=== PATIENT | female | born 1990 | race Caucasian/White ===

== ENCOUNTER 2018-11-14 19:20 | Emergency (ER) | payer MEDICAID ==
[2018-11-14 19:29] VITALS: BP 123/85
--- NOTE | 2018-11-14 19:42 | ED Physician Documentation ---
PD HPI UPPER EXT INJURY - Stated complaint Stated Complaint: LEFT HAND LAC - Chief complaint Chief Complaint: Laceration - History obtained from History obtained from: Patient - History of Present Illness Location: Left, Hand Type of injury: Laceration (stab wound type injury while cutting vegetables and the knife slipped, stabbing into thenar area near base of thumb.) Where injury occurred: Home Timing - onset: Today Timing - details: Abrupt onset Worsened by: Moving (thumb movement causes pain at lac, not into thumb nor palm/wrist.), Palpating Associated symptoms: No: Weakness, Numbness Similar symptoms before: Has not had sx before Recently seen: Not recently seen Review of Systems Neurologic: denies: Focal weakness, Numbness, Near syncope PD PAST MEDICAL HISTORY - Past Medical History Past Medical History: No - Allergies Allergies/Adverse Reactions: Allergies Allergy/AdvReac Type Severity Reaction Status Date / Time No Known Drug Allergies Allergy Verified 11/14/18 19:25 - Social History Does the pt smoke?: No Smoking Status: Never smoker PD ED PE NORMAL - Vitals Vital signs reviewed: Yes - General General: Alert and oriented X 3, No acute distress, Well developed/nourished - Derm Derm: Normal color, Warm and dry - Extremities Extremities: Other (left hand with laceration to thenar area near base of thumb ulnar side. Thumb movement strong in all directions. Pain just at lac site, not along tendon area. Normal sensation in thumb and index finger. Good color and cap refill. No FB seen. ) Results - Vitals Vitals: Oxygen O2 Source Room air Procedures - Laceration (location) left hand thenar area Length in cm: 1 Wound type: Linear, Into subcut fat, Clean Neurovascular status: Sensory intact, Motor intact, Vascular intact Tendon involvement: Tendon intact Anesthesia: Lidocaine 1% with epi Wound Preparation: Wound explored, To the base. No: FB identified Skin layer closure: Interrupted, Size #-0 - enter number (4), Sutures - enter # (3) Other: Patient tolerated well, No complications, Neurovascular intact, Dressing applied Complexity: Simple PD MEDICAL DECISION MAKING - ED course Complexity details: considered differential (location of lac would get rubbed and opened often with use, so shared decision was for sutures. ), d/w patient Departure - Departure Disposition: 01 Home, Self Care Clinical Impression: Laceration of left hand Qualifiers: Encounter type: initial encounter Foreign body presence: without foreign body Qualified Code(s): S61.412A - Laceration without foreign body of left hand, initial encounter Condition: Stable Record reviewed to determine appropriate education?: Yes Instructions: ED Laceration Hand Comments: It is okay to wash and shower. Clean off the wound twice a day with soap and water, or peroxide and water. Apply some antibiotic ointment to it to keep it moist. Also to watch for signs of infection such as purulence, redness or increasing pain. Return to your primary care or the ER at the specified time for suture removal. Suture removal 7 to 8 days. Discharge Date/Time: 11/14/18 20:16
== END 2018-11-14 20:16 | disposition home or self-care (01) ==
LOC: ED 19:20
DX: S61.412A Laceration without foreign body of left hand, initial encounter (principal); W26.0XXA Contact with knife, initial encounter; Y93.G1 Activity, food preparation and clean up; Y92.009 Unspecified place in unspecified non-institutional (private) residence as the place of occurrence of the external cause
CPT/HCPCS: 12001; 99282; 99283

== ENCOUNTER 2019-04-04 11:00 | Outpatient (CLI) | payer MEDICAID ==
[2019-04-04 18:17] LABS: THYROID STIMULATING HORMONE 0.6 uIU/mL (0.34-5.60)
[2019-04-04 18:19] LABS: FREE T4 (FREE THYROXINE) 0.75 ng/dL (0.58-1.64)
== END 2019-04-04 11:01 | disposition home or self-care (01) ==
LOC: LAB.S 11:00
PROVIDERS: ATTEND Physician Assistant Medical
DX: Z13.29 Encounter for screening for other suspected endocrine disorder (principal); R53.83 Other fatigue
CPT/HCPCS: 36415; 84439; 84443; 84481

== ENCOUNTER 2020-02-17 06:43 | Outpatient (CLI) | payer MEDICAID | END 2020-02-17 06:44 | disposition critical access hospital (66) | LOC: EMS 06:43 | PROVIDERS: ATTEND Surgery | DX: R10.32 Left lower quadrant pain (principal); R22.2 Localized swelling, mass and lump, trunk | CPT/HCPCS: A0425; A0427; A0999 ==

== ENCOUNTER 2020-02-17 07:17 | Emergency (ER) | payer MEDICAID ==
[2020-02-17] MEDS ORDERED: KETOROLAC 15 MG/ML VIAL IVP STA (07:30)
[2020-02-17] MEDS ORDERED: HYDROmorphone 1 MG/ML CARPUJECT IVP STA (07:30)
[2020-02-17 07:52] LABS: BASOPHILS % (AUTO) 0.3 %; HGB - HEMOGLOBIN 13.5 g/dL (12.0-16.0); LYMPHOCYTES # (AUTO) 0.8 10^3/uL (1.5-3.5); LYMPHOCYTES % (AUTO) 7.3 %; MEAN CORPUSCULAR HEMOGLOBIN 31.4 pg (27.0-31.0); MEAN CORPUSCULAR HGB CONC 34.4 g/dL (32.0-36.0); MEAN CORPUSCULAR VOLUME 91.4 fL (81.0-99.0); MEAN PLATELET VOLUME 10.3 fL (7.9-10.8); MONOCYTES # (AUTO) 0.5 10^3/uL (0.0-1.0); MONOCYTES % (AUTO) 4.6 %; NEUTROPHILS # (AUTO) 9.4 10^3/uL (1.5-6.6); NEUTROPHILS % (AUTO) 87.4 %; PLT - PLATELET COUNT 221 10^3/uL (130-450); RED CELL DISTRIBUTION WIDTH 12.6 % (12.0-15.0); WHITE BLOOD COUNT 10.8 x10^3/uL (4.8-10.8)
--- NOTE | 2020-02-17 09:26 | ED Physician Documentation ---
PD HPI FEMALE - Stated complaint Stated Complaint: GROIN PAIN - Chief complaint Chief Complaint: Abd Pain - History obtained from History obtained from: Patient - History of Present Illness Timing - onset: Last night Timing - details: Abrupt onset, Still present Associated symptoms: Vaginal pain (left inguinal/vulva area with swelling, tender, bruising.). No: Fever Contributing factors: Other (she was on rope swing into a river and rope got caught on her foot, so it rubbed inguinal area when she tried to let go. Had anisha e abrasion and brusing left outer labial area then. Was improving with some old bruise color of skin. NO infection. 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 - Present Medications Home Medications: Ambulatory Orders Medication Instructions Recorded Confirmed Naproxen 500 mg PO BID #20 tablet 02/17/20 Oxycodone HCl/Acetaminophen 1 each PO Q6H PRN #20 tablet 02/17/20 [Percocet 5-325 mg Tablet] - Allergies Allergies/Adverse Reactions: Allergies Allergy/AdvReac Type Severity Reaction Status Date / Time No Known Drug Allergies Allergy Verified 02/17/20 07:35 - Social History Does the pt smoke?: No Smoking Status: Never smoker Does the pt drink ETOH?: Yes Does the pt have substance abuse?: No - Immunizations Immunizations are current?: Yes - POLST Patient has POLST: No PD ED PE NORMAL - Vitals Vital signs reviewed: Yes - General General: Alert and oriented X 3, Well developed/nourished, Other (appears in pain from left inguinal swelling. 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 Some old bruising purple green color in inguinal area. No masses aside from the firm/tight hematoma. Some abrasion of skin outer labia without signs of infection. ) - Derm Derm: Normal color, Warm and dry, No rash - Neuro Neuro: Alert and oriented X 3 Results - Vitals Vitals: Vital Signs - 24 hr 02/17/20 02/17/20 02/17/20 07:28 08:16 09:35 Temperature 36 C L 36.9 C Heart Rate 77 75 76 Respiratory 16 16 18 Rate Blood Pressure 117/82 H 126/70 105/56 L O2 Saturation 97 99 100 Oxygen O2 Source Room air - Labs Labs: Laboratory Tests 02/17/20 07:48 WBC 10.8 RBC 4.30 Hgb 13.5 Hct 39.3 MCV 91.4 MCH 31.4 H MCHC 34.4 RDW 12.6 Plt Count 221 MPV 10.3 Neut # (Auto) 9.4 H Lymph # (Auto) 0.8 L [place] # (Auto) 0.5 Eos # (Auto) 0.0 Baso # (Auto) 0.0 Absolute Nucleated RBC 0.00 Nucleated RBC % 0.0 PD MEDICAL DECISION MAKING - ED course Complexity details: re-evaluated patient (rechecked after 1 1/2 hours and no appearance of it still expanding. She says it feels somewhat better with the ice on it aned less tense of a hematoma. ), d/w systems development consultant (Janneth waste reduction coordinator, that would not surgically appropach it unless still expanding hematoma. So to watch it for 1-2 hours aand ensure not notably expanding. ) ED course: No change in hematoma size after 1 1/2 hours, and patient says it is starting to hurt less with the ice application to it during that time. Departure - Departure Disposition: 01 Home, Self Care Clinical Impression: Vulvar hematoma Condition: Stable Record reviewed to determine appropriate education?: Yes Instructions: ED Hematoma Follow-Up: Naomi Lagunas MD [Provider Admit Priv/Credential] - Prescriptions: Naproxen 500 mg PO BID #20 tablet Oxycodone HCl/Acetaminophen [Percocet 5-325 mg Tablet] 1 each PO Q6H PRN #20 tablet PRN Reason: pain Comments: Ice to the area frequently today and tomorrow for sure. Anti-inflammatory such as naproxen 2-3 times daily. To that add Tylenol or oxycodone as needed for pains. I would anticipate the pressure and pain decreasing in the next 2 to 3 days as the initial pressure decreases. The hematoma itself may take 1 to 2 weeks to absorb. Follow-up with gynecology if not improving in that timeframe. Return to the ER if considerably expanding. Discharge Date/Time: 02/17/20 10:13
[2020-02-17 09:40] VITALS: BP 105/56
== END 2020-02-17 10:13 | disposition home or self-care (01) ==
LOC: EDUNIT# → ED 07:17
DX: S30.23XA Contusion of vagina and vulva, initial encounter (principal); W50.0XXA Accidental hit or strike by another person, initial encounter
CPT/HCPCS: 36415; 85025; 96374; 99283; 99284; J1170

== ENCOUNTER 2020-06-22 08:00 | Outpatient (CLI) | payer MEDICAID | END 2020-06-22 23:59 | disposition home or self-care (01) | LOC: LAB.R 08:00 | PROVIDERS: ATTEND Obstetrics & Gynecology | DX: L08.89 Other specified local infections of the skin and subcutaneous tissue (principal) | CPT/HCPCS: 87070; 87205 ==

== ENCOUNTER 2020-06-26 11:07 | Emergency (ER) | payer MEDICAID ==
--- NOTE | 2020-06-26 11:48 | ED Physician Documentation ---
History of Present Illness - Stated complaint Stated Complaint: BREAST LUMP - Chief complaint Chief Complaint: General - History obtained from History obtained from: Patient - Additonal information Additional information: 30-year-old female presents to the emergency department for further evaluation of right breast pain, swelling and erythema. She reports that on the of this month she noticed a firm lump at about 1:00 just outside the nipple. However over the next few days and especially on the of this month she began to develop increased swelling and erythema. She saw her OB Dr. Lagunas on the and was started on a course of dicloxacillin 500 mg. Despite this antibiotic she has had progressive swelling erythema and tenderness. She is had no fevers. No history of recent breast-feeding. No history of trauma. Denies any previous history of mastitis family history of breast or personal history of breast cancer. No nipple drainage, no red streaking. 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 - Present Medications Home Medications: Ambulatory Orders Medication Instructions Recorded Confirmed Naproxen 500 mg PO BID #20 tablet 02/17/20 Oxycodone HCl/Acetaminophen 1 each PO Q6H PRN #20 tablet 02/17/20 [Percocet 5-325 mg Tablet] oxyCODONE [Roxicodone] 2.5 - 5 mg PO Q4H PRN #12 tablet 06/22/20 Amox/Clav 875/125 [Augmentin] 1 each PO Q12H #20 tablet 06/26/20 oxyCODONE [Roxicodone] 5 mg PO BID PRN #10 tablet 06/26/20 - Allergies Allergies/Adverse Reactions: Allergies Allergy/AdvReac Type Severity Reaction Status Date / Time No Known Drug Allergies Allergy Verified 06/26/20 11:14 - Social History Does the pt smoke?: No Smoking Status: Never smoker Does the pt drink ETOH?: Yes Does the pt have substance abuse?: No - Immunizations Immunizations are current?: Yes - POLST Patient has POLST: No PD ED PE EXPANDED - General General: Alert, No acute distress, Well developed/nourished - Cardiac Cardiac: Regular Rate, Regular Rhythm, Radial strong equal, Cap refill < 2 sec - Respiratory Respiratory: Clear to ausultation shital. No: Distress, Labored - Abdomen Abdomen: Normal Bowel sounds. No: Tender to palpation - Derm Derm: Other (4X5 cm swelling of right breast circumferentail around the nipple with inversion. Tendenress, firmness nut no obvious fluctuance) Results - Vitals Vitals: Vital Signs - 24 hr 06/26/20 06/26/20 11:11 13:35 Temperature 36.7 C Heart Rate 97 88 Respiratory 16 16 Rate Blood Pressure 134/80 H 131/66 H O2 Saturation 100 100 Oxygen O2 Source Room air - Labs Labs: Laboratory Tests 06/26/20 06/26/20 12:04 12:04 WBC 9.5 RBC 4.41 Hgb 13.7 Hct 41.0 MCV 93.0 MCH 31.1 H MCHC 33.4 RDW 12.0 Plt Count 307 MPV 9.9 Neut # (Auto) 6.7 H Lymph # (Auto) 2.0 [place] # (Auto) 0.7 Eos # (Auto) 0.1 Baso # (Auto) 0.0 Absolute Nucleated RBC 0.00 Nucleated RBC % 0.0 Sodium 141 Potassium 4.2 Chloride 104 Carbon Dioxide 25 Anion Gap 12.0 BUN 12 Creatinine 0.5 Estimated GFR (MDRD) 144 Glucose 96 Calcium 9.8 Total Bilirubin 0.4 AST 16 ALT 21 Alkaline Phosphatase 84 Total Protein 8.0 Albumin 4.4 Globulin 3.6 Albumin/Globulin Ratio 1.2 Lipase 21 L - Rads (name of study) Right breast US Radiology: Final report received (Diffuse edema with increased vascularity throughout all quadrants spreading out about 6 cm. Increased right ductal dilation. No abscess formation.) PD MEDICAL DECISION MAKING - ED course Complexity details: reviewed results, re-evaluated patient, considered differential, d/w patient, d/w is consultant (OB Dr. Gonzalez) ED course: 30-year-old female presents emergency department for evaluation of worsening right breast mastitis. She initially developed a firm lump on the of this month and was started on dicloxacillin on the . Despite taking this antibiotic she has had increased erythema and pain. We did do screening labs today that showed no significant leukocytosis. Breast ultrasound does reveal extensive mastitis in the breast but no abscess formation. I did speak with Dr. Craig the OB on-call to discuss further management. As she has failed dicloxacillin he would recommend that we initiate Augmentin 875 twice daily. If pain erythema and redness not markedly improving in the next 48 to 72 hours he recommends return to the ER for consideration of IV antibiotics/admission. First dose of Augmentin will be given here in the emergency department. Patient is also advised to schedule close follow-up with OB for reevaluation at the completion of these antibiotics Departure - Departure Disposition: 01 Home, Self Care Clinical Impression: Mastitis of right breast unrelated to of Condition: Stable Record reviewed to determine appropriate education?: Yes Prescriptions: Amox/Clav 875/125 [Augmentin] 1 each PO Q12H #20 tablet oxyCODONE [Roxicodone] 5 mg PO BID PRN #10 tablet PRN Reason: Pain Comments: Trina the ultrasound confirms that you do have mastitis which is infection within the breast tissue. However, reassuringly, there is no abscess or fluid collection. Lets change her antibiotics to Augmentin. Please take it twice a day as directed. Also please place a warm compress over your breast for 10 minutes 3 times a day. Heat helps kill bacteria and gets good blood flow to the wound. Please stop taking your previous antibiotic the dicloxacillin. With the change in antibiotics I would expect redness, swelling and pain to be markedly improving over the next 48 to 72 hours. If not improving or worsening in any way please return to the emergency department. At that time we may need to consider admission for IV antibiotics. I have prescribed a limited amount of on for your pain. Do not drive if taking this medication it can legally intoxicated you. Please take lactobacillus twice a day [id number]. Augmentin can cause diarrhea.
[2020-06-26 12:08] LABS: BASOPHILS % (AUTO) 0.3 %; EOSINOPHILS # (AUTO) 0.1 10^3/uL (0.0-0.7); EOSINOPHILS % (AUTO) 1.4 %; HGB - HEMOGLOBIN 13.7 g/dL (12.0-16.0); LYMPHOCYTES % (AUTO) 20.9 %; MEAN CORPUSCULAR HEMOGLOBIN 31.1 pg (27.0-31.0); MEAN CORPUSCULAR HGB CONC 33.4 g/dL (32.0-36.0); MEAN PLATELET VOLUME 9.9 fL (7.9-10.8); MONOCYTES # (AUTO) 0.7 10^3/uL (0.0-1.0); MONOCYTES % (AUTO) 7.3 %; NEUTROPHILS # (AUTO) 6.7 10^3/uL (1.5-6.6); NEUTROPHILS % (AUTO) 69.8 %; PLT - PLATELET COUNT 307 10^3/uL (130-450); RED BLOOD COUNT 4.41 10^6/uL (4.20-5.40); WHITE BLOOD COUNT 9.5 x10^3/uL (4.8-10.8)
[2020-06-26] MEDS ORDERED: HYDROmorphone 1 MG/ML CARPUJECT IVP STA (12:10)
[2020-06-26] MEDS ORDERED: SODIUM CHLORIDE 0.9% 1,000 ML IV STA (12:10)
[2020-06-26 12:21] LABS: ALBUMIN 4.4 g/dL (3.2-5.5); ALBUMIN/GLOBULIN RATIO 1.2 (1.0-2.2); BILIRUBIN,TOTAL 0.4 mg/dL (0.2-1.0); CALCIUM 9.8 mg/dL (8.5-10.3); CREATININE 0.5 mg/dL (0.4-1.0)
[2020-06-26] MEDS ORDERED: AMOX/CLAV 875 MG/125 MG TABLET PO STA (14:52)
[2020-06-26 15:04] VITALS: BP 107/78
--- NOTE | 2020-06-29 11:19 | Ultrasound Report ---
LIMITED ULTRASOUND OF RIGHT BREAST: 06/26/2020 CLINICAL: Focal right breast pain and erythema. No prior exams were available for comparison. Ultrasound of the right breast four quadrants and retroareolar regions was performed. There is a 0.4 cm dilated duct in the right breast central to the nipple posterior depth. The right breast has severe edema. This dilated duct displays posterior acoustic enhancement. This correlates as palpated, to the reported pain, and with area of redness. Color flow imaging demonstrates that t here is increased vascularity. IMPRESSION: BENIGN There is no sonographic evidence of malignancy. The 0.4 cm dilated duct in the right breast and edema are consistent with mastitis. A follow-up ultrasound in 1 month after treatment or with worsening is recommended. Findings were discussed discussed with the ordering provider. This exam was interpreted at Station ID: [id number]. Electronically Signed By: Ceferino Wong acr/:06/26/2020 14:41:19 Ultrasound BI-RADS: 2 Benign BI-RADS CATEGORY: (2) - 2 Ultrasound [id number] 1 month follow-up LATERALITY: (B)
== END 2020-06-26 15:11 | disposition home or self-care (01) ==
LOC: ED 11:07
DX: N61.0 Mastitis without abscess (principal)
CPT/HCPCS: 36415; 76642; 80053; 83690; 85025; 99284; A9270

== ENCOUNTER 2020-07-16 14:16 | Outpatient (CLI) | payer MEDICAID ==
--- NOTE | 2020-07-20 11:45 | Ultrasound Report ---
LIMITED ULTRASOUND OF RIGHT BREAST: 07/16/2020 CLINICAL: Palpable right breast lumps. Comparison is made to exams dated: 07/16/2020 mammogram and 06/26/2020 ultrasound - [facility]. Color flow ultrasound of the right breast four quadrants was performed. Welsh scale images of the tanya l-time examination were reviewed. The right breast demonstrates diffuse edema without focal masses or organized fluid collections. Ther e is associated hyperemia. Previously described ductal ectasia is again noted and does not demonstrat e any intraductal filling defects or masses. There is diffuse areas of ill-defined hypoechogenic tiss ue consistent with edema. There is also diffuse skin thickening. Of note, there is no focal abnormali ty underlying the skin markers, but there is associated skin thickening in these areas. No evidence f or disturbed parenchymal echotexture. IMPRESSION: SUSPICIOUS OF MALIGNANCY Diffuse right breast edema and overlying skin thickening without focal mass lesions or disturbed pare nchymal echotexture. No focal fluid collections. Clinically, the patient reports improvement in sympt oms with resolution of nipple thickening and peeling. There has been some equivocal response to cours e of antibiotics. Findings may represent an infectious or inflammatory process with differential diag nosis including granulomatous mastitis or other infectious mastitis with atypical organisms. However, inflammatory breast cancer not completely excluded. A punch biopsy is recommended for further evaluation. Findings and recommendations were discussed wit h Dr. Lagunas as well as Dr. Fischer. Findings were also discussed with the patient at the end of her evaluation. This exam was interpreted at Station ID: [id number]. Electronically Signed By: Sherman Rodas M.D. aty/:07/17/2020 18:38:08 Ultrasound BI-RADS: 4 Suspicious for malignancy BI-RADS CATEGORY: (4) - 4 None [id number] Immediate follow-up LATERALITY: ()
--- NOTE | 2020-07-20 11:45 | Mammography Report ---
BILATERAL DIGITAL DIAGNOSTIC MAMMOGRAM 3D/2D: 07/16/2020 CLINICAL: Palpable RT breast lump x 1 month. yellow discharge oozing out during mammogram. RT nipple is normally inverted. Skin red around breast. PT states mass has decreased in size since taking antib iotics but still persists. No prior exams were available for comparison. The tissue of both breasts is extremely dense, which l owers the sensitivity of mammography. There is a global asymmetry involving the anterior half of the right breast consistent with diffuse t rabecular thickening and edema. The two triangle markers denoting areas of focal skin erythema withou t focal underlying abnormalities. There is diffuse skin thickening of the right breast predominantly involving the anterior half of the breast. No significant masses, calcifications, or other findings are seen in either breast. IMPRESSION: INCOMPLETE: NEEDS ADDITIONAL IMAGING EVALUATION There is a global asymmetry involving the anterior half of the right breast consistent with diffuse t rabecular thickening and edema. There is diffuse skin thickening. There is no abnormality seen in the right breast to correspond with the area of skin lesions indicated by triangular markers. An ultrasound is recommended for further evaluation and is scheduled to immediately follow this exami [facility]. This exam was interpreted at Station ID: [id number]. NOTE: For mammograms, a report in lay terms will be sent to the patient. Approximately 15% of breast malignancies will not be visualized mammographically. In the management of a palpable breast mass, a negative mammogram must not discourage biopsy of a clinically suspicious lesion. Electronically Signed By: Sherman Rodas M.D. aty/:07/17/2020 18:02:39 ACR BI-RADS Category 0: Incomplete 3340F PARENCHYMAL PATTERN: (VD) - The breast(s) demonstrate(s) extremely dense parenchyma, limiting the sen sitivity of mammography. BI-RADS CATEGORY: (0) - 0 Ultrasound [id number] Immediate follow-up LATERALITY: (R)
== END 2020-07-16 14:17 | disposition home or self-care (01) ==
LOC: DI 14:16
PROVIDERS: ATTEND Advanced Practice Midwife
DX: N63.10 Unspecified lump in the right breast, unspecified quadrant (principal); N60.41 Mammary duct ectasia of right breast; N64.52 Nipple discharge

== ENCOUNTER 2020-08-21 13:32 | Outpatient (CLI) | payer MEDICAID | END 2020-08-21 13:33 | disposition home or self-care (01) | LOC: COV 13:32 | PROVIDERS: ATTEND Surgery | DX: Z01.812 Encounter for preprocedural laboratory examination (principal); N61.1 Abscess of the breast and nipple; Z20.822 Contact with and (suspected) exposure to COVID-19 ==

== ENCOUNTER 2020-08-24 06:07 | Day surgery (SDC) | payer MEDICAID ==
[2020-08-24] MEDS ORDERED: LACTATED RINGERS 1,000 ML IV ONE ×2 (06:36→09:35)
[2020-08-24 06:41] LABS: HCG UR QUAL NEGATIVE
[2020-08-24] MEDS ORDERED: KETOROLAC 30 MG/ML VIAL ONE (07:09)
[2020-08-24] MEDS ORDERED: ONDANSETRON 4 MG/2 ML VIAL ONE (07:09)
[2020-08-24] MEDS ORDERED: LIDOCAINE-MPF 2% 5 ML VIAL ONE (07:09)
[2020-08-24] MEDS ORDERED: PROPOFOL 200 MG/20 ML VIAL IVP ONE (07:09)
[2020-08-24] MEDS ORDERED: fentaNYL 100 MCG/2 ML VIAL ONE (07:09)
[2020-08-24] MEDS ORDERED: DEXAMETHASONE 4 MG/ML VIAL ONE (07:09)
[2020-08-24] MEDS ORDERED: MIDAZOLAM 2 MG/2 ML VIAL ONE (07:09)
[2020-08-24] MEDS ORDERED: ePHEDrine 50 MG/ML VIAL IVP PRN (07:11)
[2020-08-24] MEDS ORDERED: ATROPINE ABBOJECT 1 MG/10 ML SYRINGE IVP PRN (07:11)
[2020-08-24] MEDS ORDERED: METOCLOPRAMIDE 10 MG/2 ML VIAL IVP PRN (07:11)
[2020-08-24] MEDS ORDERED: fentaNYL 100 MCG/2 ML VIAL IVP PRN (07:11)
[2020-08-24] MEDS ORDERED: HYDROmorphone 0.5 MG/0.5 ML SYRINGE IVP PRN (07:11)
[2020-08-24] MEDS ORDERED: NALOXONE 0.4 MG/ML VIAL IVP PRN (07:11)
[2020-08-24] MEDS ORDERED: ONDANSETRON 4 MG/2 ML VIAL IVP PRN ×2 (07:11→09:24)
[2020-08-24] MEDS ORDERED: MORPHINE 2 MG/ML CARPUJECT IVP PRN (07:11)
--- NOTE | 2020-08-24 07:11 | ANESTHESIA ---
Pre-Anesthesia VS, & Labs - Diagnosis multiple right breast abscess - Procedure I&D Right breast abscess Vital Signs: Temp Pulse Resp BP Pulse Ox 36.2 C L 72 16 115/66 100 08/24/20 06:30 08/24/20 06:30 08/24/20 06:30 08/24/20 06:30 08/24/20 06:30 Height: 5 ft 5 in Weight (kg): 62.9 kg Body Mass Index: 23.1 BMI Classification: Healthy weight - NPO >8 hours - Is Patient ?: No Home Medications and Allergies Allergies/Adverse Reactions: Allergies Allergy/AdvReac Type Severity Reaction Status Date / Time No Known Drug Allergies Allergy Verified 06/26/20 11:14 Anes History & Medical History - Anesthetic History Anesthesia Complications: reports: No previous complications Family history of Anesthesia Complications: Denies Family history of Malignant Hyperthermia: Denies - Medical History Cardiovascular: reports: None Pulmonary: reports: None Gastrointestinal: reports: None Urinary: reports: None Musculoskeletal: reports: None Endocrine/Autoimmune: reports: None Skin: reports: None Smoking Status: Never smoker - Surgical History Gynecologic: reports: section Exam General: Alert, Oriented x3, Cooperative, No acute distress Dental: WNL Mouth Openin Fingerbreadth Neck Mobility: Normal Mallampati classification: I Respiratory: Lungs clear, Normal breath sounds, No respiratory distress, No accessory muscle use Cardiovascular: Regular rate, Normal S1, Normal S2, No murmurs Plan Anesthesia Type: General Consent for Procedure(s) Verified and Reviewed: Yes Code Status: Attempt Resuscitation ASA classification: 1-Healthy patient Is this case an emergency?: No
[2020-08-24] MEDS ORDERED: BUPIVACAINE 0.5% PF 30 ML VIAL ONE (07:20)
[2020-08-24] MEDS ORDERED: LIDOCAINE 2%-EPI 1:100000 20 ML MDV ONE (07:20)
[2020-08-24] MEDS ORDERED: LACTATED RINGERS 1,000 ML IV SCH (08:00)
[2020-08-24] MEDS ORDERED: ceFAZolin 1 GM VIAL ONE (09:00)
[2020-08-24] MEDS ORDERED: ACETAMINOPHEN 325 MG TABLET PO PRN (09:24)
[2020-08-24] MEDS ORDERED: oxyCODONE 5 MG TABLET PO PRN (09:24)
[2020-08-24] MEDS ORDERED: IBUPROFEN 600 MG TABLET PO PRN (09:24)
[2020-08-24] MEDS ORDERED: LIDOCAINE 2%-EPI 1:100000 20 ML MDV SUBQ ONE (09:25)
[2020-08-24] MEDS ORDERED: BUPIVACAINE 0.5% PF 30 ML VIAL INFIL ONE (09:26)
[2020-08-24 09:42] VITALS: BP 122/79
--- NOTE | 2020-08-24 09:45 | OPERATIVE REPORT ---
Operative Report - General Procedure Date: 08/24/20 Planned Procedure: Incision and drainage of multiple breast abscess with biopsy Pre-Op Diagnosis: Multiple breast abscesses Procedure Performed: Incision and drainage of multiple breast abscess with nipple reconstruction and biopsy Post Op Diagnosis: Multiple breast abscesses - Procedure Note Primary Surgeon: Aaliyah Anesthesia Provider: BRANDY Rivero Anesthesia Technique: General LMA Pathology: 1. Right breast skin 2. Right breast abscess cavity 3. Culture right breast abscess cavity 4. Culture right breast nipple Estimated Blood Loss (mL): 10 Indications: Recurrent right breast abscess with multiple cavities seen on MRI Findings: 1. Abscess cavity with inspisated thick cheesy material and associated green tinged fluid in the retro areolar region on the right 2. Abscess cavity extending into the lower inner quadrant of the right breast Complications: None apparent - Other Other Information/Narrative: After obtaining informed consent, the patient is brought to the operating room and placed in the supine position on the operating table. Following successful induction of general anesthesia, appropriate padding of all bony prominences and placement of appropriate monitors, the right breast was prepped and draped in the standard surgical fashion. A timeout was held per scope protocol. All elements of the surgical safety checklist were followed before, during, and after the procedure. Following infiltration with local anesthetic to create a field block, an elliptical incision was created around the 2 existing lesions in the skin of the right breast. I began with the one at 11:00 this was elliptically excised completely. Probing of the wound did not reveal any communication into the breast.I continued by elliptically excising the lesion at 3:00 in the right breast.All of the granulation tissue was removed and sent for pathology. The wound was then explored. It tracked notably to the retroareolar region and into the right lower inner quadrant. Septations joining these 2 abscess cavities were broken up with the surgeons index finger.Both cavities were cultured and sent for both aerobic and anaerobic evaluation.The cavity posterior to the nipple, was then opened sharply to allow complete evacuation. The material within this cavity was a thickest cheesy material with the appearance of curdled milk. It was associated with a green-tinged liquid but no foul odor was present. The cavity was completely evacuated.Both the larger abscess cavities were washed copiously with warm saline solution. A biopsy was taken of the posterior areolar region using forceps and a 15 blade scalpel. This was also sent for pathology. The wound was irrigated once again. We noted that now the right nipple appeared to want to invert. The nipple was then reconstructed by placing a 3-0 Vicryl pursestring suture around the area and tying it to hold the skin in the more erect position. The wound was then checked for hemostasis. The skin incisions were closed with interrupted Vicryl sutures and the wound to the level at the 11 o'clock position that tract with the retroareolar abscess, was then packed with iodoform gauze. We used quarter inch Nu Gauze with liquid iodine. A dry dressing was applied. All sponge, needle, and instrument counts were correct at the conclusion of the case. The patient was allowed to wake from anesthesia without difficulty and taken to the postanesthesia care unit in good condition.
[2020-08-24] MEDS ORDERED: oxyCODONE 5 MG TABLET ONE (10:06)
--- NOTE | 2020-08-24 10:40 | ANESTHESIA POST OP EVALUATION ---
Anesthesia Post Eval - Post Anesthesia Eval Vitals: Last Vital Signs Temp 36.3 C L 08/24/20 09:32 Pulse 87 08/24/20 09:54 Resp 14 08/24/20 09:54 BP 122/79 08/24/20 09:54 Pulse Ox 100 08/24/20 09:54 CV Function Including HR & BP: positive: Stable Pain Control: positive: Satisfactory Nausea & Vomiting: positive: Negative Mental Status: positive: Baseline Respiratory Status: Airway Patent Hydration Status: Satisfactory Anesthesia Complications: positive: None
== END 2020-08-24 06:08 | disposition home or self-care (01) ==
LOC: SDS 06:07
PROVIDERS: ATTEND Surgery
PROC: 0H9T0ZZ Drainage of Right Breast, Open Approach (ICD-10-PCS; principal; 2020-08-24 07:30)
DX: N61.1 Abscess of the breast and nipple (principal); F41.9 Anxiety disorder, unspecified
CPT/HCPCS: 19020; 81025; 87070; 87205; A9270; J7120

== ENCOUNTER 2021-01-25 06:27 | Day surgery (SDC) | payer MEDICAID ==
[~2021-01-25 06:27] MED LIST: CEFAZOLIN SODIUM IN 0.9 % NACL 2 GM/100 ML BAG IV ONE; LACTATED RINGERS 1,000 ML IV ONE
[2021-01-25 06:44] LABS: HCG UR QUAL NEGATIVE
[2021-01-25] MEDS ORDERED: PROPOFOL 200 MG/20 ML VIAL IVP ONE (07:07)
[2021-01-25] MEDS ORDERED: fentaNYL 100 MCG/2 ML VIAL ONE (07:07)
[2021-01-25] MEDS ORDERED: LIDOCAINE-MPF 2% 5 ML VIAL ONE (07:07)
[2021-01-25] MEDS ORDERED: MIDAZOLAM 2 MG/2 ML VIAL ONE (07:07)
[2021-01-25] MEDS ORDERED: LIDOCAINE 2%-EPI 1:100000 20 ML MDV ONE (07:20)
[2021-01-25] MEDS ORDERED: BUPIVACAINE 0.5% PF 10 ML VIAL ONE (07:21)
--- NOTE | 2021-01-25 07:23 | ANESTHESIA ---
Pre-Anesthesia VS, & Labs - Diagnosis recurrent breast abcess, right - Procedure right excisional biopsy Vital Signs: Temp Pulse Resp BP Pulse Ox 36.9 C 76 17 113/73 99 01/25/21 06:44 01/25/21 06:44 01/25/21 06:44 01/25/21 06:44 01/25/21 06:44 Height: 5 ft 6 in Weight (kg): 63.5 kg Body Mass Index: 22.6 BMI Classification: Healthy weight - NPO >8 hours - Is Patient ?: No Home Medications and Allergies Home Medications: Ambulatory Orders ALPRAZolam [Alprazolam] 0.5 mg PO BID 01/25/21 ALPRAZolam [Alprazolam] 0.5 mg PO BID 01/25/21 Allergies/Adverse Reactions: Allergies Allergy/AdvReac Type Severity Reaction Status Date / Time No Known Drug Allergies Allergy Verified 01/25/21 06:52 Anes History & Medical History - Anesthetic History Anesthesia Complications: reports: No previous complications - Medical History Cardiovascular: reports: None Pulmonary: reports: None Gastrointestinal: reports: None Urinary: reports: None Musculoskeletal: reports: None Endocrine/Autoimmune: reports: None Skin: reports: None Smoking Status: Never smoker History of Cancer?: No - Surgical History Gynecologic: reports: section, Other Exam General: Alert Dental: WNL Mouth Opening: Greater than 4 Fingerbreadths Mallampati classification: I Thyromental Distance: greater than 6 cm Respiratory: Lungs clear Cardiovascular: Regular rate Plan Anesthesia Type: General Consent for Procedure(s) Verified and Reviewed: Yes Code Status: Attempt Resuscitation ASA classification: 1-Healthy patient Is this case an emergency?: Yes
[2021-01-25] MEDS ORDERED: MORPHINE 2 MG/ML CARPUJECT IVP PRN (07:32)
[2021-01-25] MEDS ORDERED: ONDANSETRON 4 MG/2 ML VIAL IVP PRN ×2 (07:32→09:08)
[2021-01-25] MEDS ORDERED: HYDROmorphone 0.5 MG/0.5 ML SYRINGE IVP PRN (07:32)
[2021-01-25] MEDS ORDERED: fentaNYL 100 MCG/2 ML VIAL IVP PRN (07:32)
[2021-01-25] MEDS ORDERED: ePHEDrine 50 MG/ML VIAL IVP PRN (07:32)
[2021-01-25] MEDS ORDERED: ATROPINE ABBOJECT 1 MG/10 ML SYRINGE IVP PRN (07:32)
[2021-01-25] MEDS ORDERED: NALOXONE 0.4 MG/ML VIAL IVP PRN (07:32)
[2021-01-25] MEDS ORDERED: METOCLOPRAMIDE 10 MG/2 ML VIAL IVP PRN (07:32)
[2021-01-25] MEDS ORDERED: KETOROLAC 30 MG/ML VIAL ONE (07:59)
[2021-01-25] MEDS ORDERED: DEXAMETHASONE 4 MG/ML VIAL ONE (07:59)
[2021-01-25] MEDS ORDERED: ONDANSETRON 4 MG/2 ML VIAL ONE (07:59)
[2021-01-25] MEDS ORDERED: LACTATED RINGERS 1,000 ML IV SCH (08:00)
[2021-01-25] MEDS ORDERED: BUPIVACAINE 0.5% PF 10 ML VIAL SUBQ ONE ×2 (08:10)
[2021-01-25] MEDS ORDERED: LIDOCAINE 2%-EPI 1:100000 20 ML MDV SUBQ ONE ×2 (08:10)
--- NOTE | 2021-01-25 09:02 | OPERATIVE REPORT ---
Operative Report - General Procedure Date: 01/25/21 Planned Procedure: Right breast excisional biopsy Pre-Op Diagnosis: Chronic recurrent right breast abscess Procedure Performed: Right breast excisional biopsy with nipple reconstruction Post Op Diagnosis: Chronic recurrent breast abscess - Procedure Note Primary Surgeon: Aaliyah Anesthesia Provider: BRANDY Anne Anesthesia Technique: General LMA, Local Pathology: 1. Right breast chronic sinus and associated tissue marked for orientation 2. Additional abscess cavity tissue IV Fluids (mL): 500 Estimated Blood Loss (mL): 20 Indications: Chronic recurrent right breast abscess Findings: Long tract leading to a central dispersed cavity with slimy greenish substance Complications: None apparent - Other Other Information/Narrative: After obtaining informed consent, the patient is brought to the operating room and placed in the supine position on the operating table. Following successful induction of general anesthesia, appropriate padding of all bony prominences, and placement of appropriate monitors, the right breast was prepped and draped in the standard surgical fashion. A timeout was held per scope protocol. All elements of the surgical safety checklist were followed before, during, and after the procedure. We began by infiltrating a mixture of local anesthetics in and around the tissue of the right breast and areolar complex. An elliptical incision was fashioned around to the primary draining sinus at the medial aspect of the nipple areolar complex. This was carried through the skin and subcutaneous tissue into the breast tissue below. We noted a continuous sinus going down through the entirety of the breast tissue all the way to the pectoralis muscle containing just a slimy gelatinous fluid. Subcutaneously, this sinus continued superiorly to the right upper outer breast to skin but it did not track with deep within the breast tissue. This tissue containing the sinus was excised with the specimen. It was marked for orientation and submitted to pathology. Additional portions of breast tissue were removed to get what appeared to be all of the epithelialized tract removed. An elliptical incision was created around the upper outer quadrant draining sinus and the skin removed as well. This did not appear to track deep within the tissue but was more superficial in nature. The nipple itself was examined posteriorly and found to contain multiple ectatic ducts with thick gelatinous fluid. These ducts were expressed and cleaned and the nipple was reconstructed using 3-0 Vicryl suture in a pursestring fashion. The wound was then checked for hemostasis and irrigated copiously with warm water. It was closed in 2 layers with Vicryl and Monocryl suture. Dermabond was applied to the skin.All sponge, needle, and instrument counts were correct at the conclusion of the case. The patient was allowed to wake from anesthesia without difficulty and taken to the postanesthesia care unit in good condition.
[2021-01-25] MEDS ORDERED: LACTATED RINGERS 1,000 ML IV ONE (09:04)
[2021-01-25] MEDS ORDERED: IBUPROFEN 600 MG TABLET PO PRN (09:08)
[2021-01-25] MEDS ORDERED: ACETAMINOPHEN 325 MG TABLET PO PRN (09:08)
[2021-01-25] MEDS ORDERED: oxyCODONE 5 MG TABLET PO PRN (09:08)
[2021-01-25 09:53] VITALS: BP 114/68
--- NOTE | 2021-01-25 16:37 | ANESTHESIA POST OP EVALUATION ---
Anesthesia Post Eval - Post Anesthesia Eval Vitals: Last Vital Signs Temp 36.6 C 01/25/21 09:52 Pulse 77 01/25/21 09:52 Resp 16 01/25/21 09:52 BP 114/68 01/25/21 09:52 Pulse Ox 98 01/25/21 09:52 CV Function Including HR & BP: Stable Pain Control: Satisfactory Nausea & Vomiting: Negative Mental Status: Baseline Respiratory Status: Airway Patent Hydration Status: Satisfactory Anesthesia Complications: None
== END 2021-01-25 06:28 | disposition home or self-care (01) ==
LOC: SDS 06:27
PROVIDERS: ATTEND Surgery
PROC: 0HBT0ZX Excision of Right Breast, Open Approach, Diagnostic (ICD-10-PCS; principal; 2021-01-25 07:30)
DX: N61.1 Abscess of the breast and nipple (principal)
CPT/HCPCS: 19110; 81025; 88305; J0690; J7120

== ENCOUNTER 2021-06-23 08:47 | Outpatient (CLI) | payer MEDICAID ==
[2021-06-23 14:59] LABS: BASOPHILS % (AUTO) 0.5 %; BILIRUBIN,URINE NEGATIVE (NEGATIVE); CLARITY,URINE CLEAR (CLEAR); EOSINOPHILS # (AUTO) 0.1 10^3/uL (0.0-0.7); GLUCOSE, URINE (UA) NEGATIVE (NEGATIVE); HCT - HEMATOCRIT 42.4 % (37.0-47.0); HGB - HEMOGLOBIN 13.9 g/dL (12.0-16.0); KETONES,URINE (UA) NEGATIVE (NEGATIVE); LEUKOCYTE ESTERASE, URINE NEGATIVE (NEGATIVE); LYMPHOCYTES # (AUTO) 1.9 10^3/uL (1.5-3.5); LYMPHOCYTES % (AUTO) 32.1 %; MEAN CORPUSCULAR HEMOGLOBIN 30.5 pg (27.0-31.0); MEAN CORPUSCULAR HGB CONC 32.8 g/dL (32.0-36.0); MEAN PLATELET VOLUME 10.9 fL (7.9-10.8); MONOCYTES # (AUTO) 0.5 10^3/uL (0.0-1.0); MONOCYTES % (AUTO) 7.8 %; NEUTROPHILS # (AUTO) 3.4 10^3/uL (1.5-6.6); NEUTROPHILS % (AUTO) 57.3 %; NITRITE,URINE NEGATIVE (NEGATIVE); OCCULT BLOOD,URINE TRACE-LYSE (NEGATIVE); PH,URINE 6.5 PH (5.0-7.5); PLT - PLATELET COUNT 194 10^3/uL (130-450); PROTEIN,URINE NEGATIVE (NEGATIVE); RED BLOOD COUNT 4.56 10^6/uL (4.20-5.40); RED CELL DISTRIBUTION WIDTH 12.5 % (12.0-15.0); UROBILINOGEN,URINE 0.2 (NORMAL) E.U./dL (NORMAL); WHITE BLOOD COUNT 5.9 x10^3/uL (4.8-10.8)
[2021-06-23 15:13] LABS: BACTERIA,URINE None Seen /HPF (None Seen); RBC,URINE None Seen /HPF (0-5); SQUAMOUS EPITHELIAL CELL,UR FEW Squamous (<= Few); WBC,URINE 0-3 /HPF (0-5)
[2021-06-23 15:26] LABS: ALBUMIN 4.4 g/dL (3.2-5.5); ALBUMIN/GLOBULIN RATIO 1.7 (1.0-2.2); ALKALINE PHOSPHATASE 69 IU/L (42-121); ALT ALANINE AMINOTRANSFERASE 14 IU/L (10-60); AST ASPARTATE AMINOTRANSFERASE 16 IU/L (10-42); BILIRUBIN,TOTAL 0.6 mg/dL (0.2-1.0); BUN - BLOOD UREA NITROGEN 17 mg/dL (6-20); CALCIUM 9.5 mg/dL (8.5-10.3); CARBON DIOXIDE - CO2 26 mmol/L (21-32); CHLORIDE 103 mmol/L (101-111); CHOL/HDL RATIO 1.9 (<4.4); CHOLESTEROL 167 mg/dL; CREATININE 0.6 mg/dL (0.4-1.0); GFR - MDRD 116 (>89); GLUCOSE 87 mg/dL (70-100); HDL CHOLESTEROL 86 mg/dL; LDL CHOLESTEROL,CALCULATED 72 mg/dL; LDL/HDL RATIO 0.8 (<4.4); SODIUM 137 mmol/L (135-145); TRIGLYCERIDES 46 mg/dL; VLDL CHOLESTEROL 9 mg/dL
[2021-06-23 15:54] LABS: THYROID STIMULATING HORMONE 0.55 uIU/mL (0.34-5.60)
== END 2021-06-23 08:48 | disposition home or self-care (01) ==
LOC: LAB.S 08:47
PROVIDERS: ATTEND Physician Assistant
DX: Z13.9 Encounter for screening, unspecified (principal)
CPT/HCPCS: 36415; 80050; 80061; 81001; 83721; 87086

== ENCOUNTER 2021-07-24 13:29 | Outpatient (CLI) | payer MEDICAID ==
[2021-07-27 15:01] LABS: NIL 0.04 IU/mL; TB1-NIL 0.02 IU/mL; TB2-NIL 0.02 IU/mL
== END 2021-07-24 13:30 | disposition home or self-care (01) ==
LOC: LAB.S 13:29
PROVIDERS: ATTEND Physician Assistant
DX: Z01.84 Encounter for antibody response examination (principal); Z11.1 Encounter for screening for respiratory tuberculosis
CPT/HCPCS: 36415; 86480; 86735; 86762; 86765

== ENCOUNTER 2022-09-19 10:18 | Outpatient (CLI) | payer MEDICAID ==
--- NOTE | 2022-09-20 10:21 | Ultrasound Report ---
LIMITED ULTRASOUND OF RIGHT BREAST: 09/19/2022 CLINICAL: Palpable right breast lump. Focal right breast pain. Comparison is made to exams dated: 08/17/2020 breast MRI - [facility], 09/19/2022 mammogram, 021 ultrasound, 07/16/2020 mammogram, and 06/26/2020 ultrasound - [facility]. Color flow ultrasound of the right breast 1 o'clock region was performed. Welsh scale images of the r eal-time examination were reviewed. There is a 1.4 cm x 0.6 cm x 1.2 cm oval complicated cyst in the skin of the right breast at 1 o'cloc k 5 cm from the nipple. This oval complicated cyst displays internal echoes. This correlates as pal pated and with mammography findings. This is reportedly at the site of prior surgery. IMPRESSION: PROBABLY BENIGN The 1.4 cm x 0.6 cm x 1.2 cm oval complicated skin-based cyst at 1:00 is probably benign. This corre lates as palpated and with mammography findings. This is reportedly at the site of prior surgery and may represent a post-operative collection of indeterminant sterility. Clinical followup is recommended to assess for any signs of growth or inflammation. A follow-up ultra sound in 3 months is recommended to ensure stability/resolution. Clinical breast exam followup is also recommended for the mild questionable skin thickening in the LE FT nipple-areolar complex. Patient can return sooner for evaluation if new or worsening symptoms develop. This exam was interpreted at Station ID: [id number]. Electronically Signed By: Amaury Guy M.D. lc/:09/19/2022 11:35:22 Ultrasound BI-RADS: 3 Probably benign BI-RADS CATEGORY: (3) - 3 Ultrasound [id number] 3 month follow-up LATERALITY: (B)
--- NOTE | 2022-09-20 10:21 | Mammography Report ---
BILATERAL DIGITAL DIAGNOSTIC MAMMOGRAM 3D/2D WITH SPOT COMPRESSION: 09/19/2022 CLINICAL: Focal right breast pain. Due for bilateral imaging. Comparison is made to exams dated: 08/17/2020 breast MRI - [facility] and 07/16/2020 mammogram - [facility]. Both breasts are heterogeneously dense, which may obscure small masses (category c / 51-75% glandular tissue). There is a 0.8 cm oval mass with a circumscribed margin in the right breast at 1 o'clock middle depth . This correlates as palpated, to area of tenderness, to post-operative changes, and with skin marke r. This appears to be on the skin on tomography images. No other significant masses, calcifications, or other findings are seen in either breast. There is possible mild skin thickening of the nipple-areolar complex of the left breast. IMPRESSION: INCOMPLETE: NEEDS ADDITIONAL IMAGING EVALUATION The 0.8 cm oval mass on the skin of the right breast is indeterminate. This correlates as palpated, t o area of tenderness, to post-operative changes, and with skin marker. An ultrasound is recommended . There is possible mild skin thickening of the nipple-areolar complex of the left breast. Based on the Tyrer Cuzick model (a risk assessment model) the patients lifetime risk is 13.4% and he r 10 year risk is 0.8%. According to the ACR, ACS, and NCCN guidelines, an annual breast MRI exam paulette ng with mammogram is recommended if the patients lifetime risk is 20% or greater. This exam was interpreted at Station ID: [id number]. NOTE: For mammograms, a report in lay terms will be sent to the patient. Approximately 15% of breast malignancies will not be visualized mammographically. In the management of a palpable breast mass, a negative mammogram must not discourage biopsy of a clinically suspicious lesion. Electronically Signed By: Amaury Guy M.D. lc/:09/19/2022 11:30:44 ACR BI-RADS Category 0: Incomplete 3340F PARENCHYMAL PATTERN: (D) - The breast(s) demonstrate(s) heterogeneously dense fibroglandular parenchy ma. BI-RADS CATEGORY: (0) - 0 Ultrasound [id number] Immediate follow-up LATERALITY: (B)
== END 2022-09-19 10:19 | disposition home or self-care (01) ==
LOC: DI 10:18
PROVIDERS: ATTEND Physician Assistant
DX: R92.8 Other abnormal and inconclusive findings on diagnostic imaging of breast (principal); N60.01 Solitary cyst of right breast

== ENCOUNTER 2023-01-31 11:08 | Emergency (ER) | payer MEDICAID ==
[2023-01-31 11:20] VITALS: BP 128/84; O2SAT 100
--- NOTE | 2023-01-31 12:27 | ED Physician Documentation ---
PD HPI SKIN - Stated complaint Stated Complaint: RT BREAST PX - Chief complaint Chief Complaint: General - History obtained from History obtained from: Patient - History of Present Illness Timing - onset: How many days ago (few) Timing - duration: Days (few) Timing - details: Gradual onset, Still present Location: Other (right breast at 2 oclock position to the areola.) Quality / character: Painful, Discolored (red), Swelling Associated symptoms: No: Fever, Myalgias Similar symptoms before: Diagnosis (has had mastitis that developed to abscess and needed surgical drainage.) Recently seen: Not recently seen Review of Systems Constitutional: denies: Fever, Chills Respiratory: denies: Dyspnea, Cough PD PAST MEDICAL HISTORY - Past Medical History Past Medical History: Yes Cardiovascular: None Respiratory: None Neuro: None Endocrine/Autoimmune: None GI: None CAT SITTER: None : None HEENT: None Psych: Anxiety, Panic attacks Musculoskeletal: None Derm: None - Past Surgical History Past Surgical History: Yes /CAT SITTER: section, Other - Present Medications Home Medications: Ambulatory Orders Medication Instructions Recorded Confirmed ALPRAZolam [Alprazolam] 0.5 mg PO BID PRN 01/25/21 01/31/23 Doxycycline Hyclate 100 mg PO BID 7 Days #14 cap 01/31/23 HYDROcod/ACETAM 5/325 [[place] 5/325] 1 ea PO Q6H PRN #10 tablet 01/31/23 Naproxen 500 mg PO BID #15 tab 01/31/23 - Allergies Allergies/Adverse Reactions: Allergies Allergy/AdvReac Type Severity Reaction Status Date / Time No Known Drug Allergies Allergy Verified 01/31/23 11:12 - Social History Does the pt smoke?: No Smoking Status: Never smoker Does the pt drink ETOH?: Yes Does the pt have substance abuse?: No - Immunizations Immunizations are current?: Yes - POLST Patient has POLST: No PD ED PE NORMAL - Vitals Vital signs reviewed: Yes - General General: Alert and oriented X 3, No acute distress, Well developed/nourished - Derm Derm: Normal color, Warm and dry, Other (right breast at 2 oclock position to the areola with local area of firmness, tender and some redness. No drainage.) Results - Vitals Vitals: Vital Signs - 24 hr 01/31/23 11:13 Temperature 36.7 C Heart Rate 79 Respiratory 16 Rate Blood Pressure 128/84 H O2 Saturation 100 Oxygen O2 Source Room air PD Medical Decision Making - ED course Complexity details: re-evaluated patient (US is backed up and the patient needs to get kids from school. Lower clinical suspicon for abscess, so can treat with abx and have her follow up outpt if not improved. ), considered differential (has local redness, tender at breast. Not fluctuant. Consider early abscess though as she has had those, so US would be nice to eval. ), d/w patient Departure - Departure Disposition: Home, Self Care Clinical Impression: Breast infection in female Condition: Stable Record reviewed to determine appropriate education?: Yes Follow-Up: Brittany Yoon PA [Primary Care Provider] - Prescriptions: Doxycycline Hyclate 100 mg PO BID 7 Days #14 cap Naproxen 500 mg PO BID #15 tab HYDROcod/ACETAM 5/325 [[place] 5/325] 1 ea PO Q6H PRN #10 tablet PRN Reason: Pain Comments: Sorry the ultrasound was backed up and not able to get to in a timely fashion today. I think we can treat this as an early infection without that though. I sent prescriptions to pharmacy for doxycycline antibiotic twice daily for a week and naproxen anti-inflammatory twice daily as well. To that you can add Tylenol every 4-6 hours if needed for pain. I also prescribed hydrocodone to use for worse pain at times with the intention being short-term until the infection is improving. Follow-up with your primary care as needed. Subsequent outpatient ultrasound as scheduled. I am prescribing a short course of narcotic pain medication for you. These are potentially dangerous and addictive medications that should be used carefully. These medications may constipate you. Take an [id number] stool softener such as docusate twice daily with plenty of water while taking these medications. If you go 24 hours without a bowel movement, take [id number] MiraLAX, per package instructions. Do not drink or drive while taking these medications. If you received narcotic or sedating medications while in the emergency department do not drive for 24 hours. Store this medication in a safe, secure place and out of reach of children. It is a violation of federal law to give or sell this medication to another person or to use in a manner other than prescribed. The ED will not refill narcotic prescriptions, including prescriptions lost or stolen. You can dispose of unwanted medications at the [facility]'s office or at several pharmacies such as [facility]. Forms: PCP List Discharge Date/Time: 01/31/23 14:31
[2023-01-31] MEDS ORDERED: DOXYCYCLINE 100 MG TABLET PO STA (12:40)
[2023-01-31] MEDS ORDERED: IBUPROFEN 600 MG TABLET PO STA (12:40)
== END 2023-01-31 14:31 | disposition home or self-care (01) ==
LOC: ED 11:08
DX: N64.89 Other specified disorders of breast (principal)
CPT/HCPCS: 99283; 99284; A9270

== ENCOUNTER 2023-02-08 07:12 | Emergency (ER) | payer MEDICAID ==
[2023-02-08 08:05] LABS: BASOPHILS % (AUTO) 0.4 %; EOSINOPHILS % (AUTO) 0.2 %; HGB - HEMOGLOBIN 14.7 g/dL (12.0-16.0); LYMPHOCYTES # (AUTO) 1.5 10^3/uL (1.5-3.5); LYMPHOCYTES % (AUTO) 13.7 %; MEAN CORPUSCULAR HEMOGLOBIN 30.2 pg (27.0-31.0); MEAN CORPUSCULAR HGB CONC 34.2 g/dL (32.0-36.0); MEAN CORPUSCULAR VOLUME 88.3 fL (81.0-99.0); MEAN PLATELET VOLUME 10.7 fL (7.9-10.8); MONOCYTES # (AUTO) 0.5 10^3/uL (0.0-1.0); MONOCYTES % (AUTO) 4.1 %; NEUTROPHILS # (AUTO) 9.1 10^3/uL (1.5-6.6); NEUTROPHILS % (AUTO) 81.2 %; PLT - PLATELET COUNT 242 10^3/uL (130-450); RED BLOOD COUNT 4.87 10^6/uL (4.20-5.40); RED CELL DISTRIBUTION WIDTH 12.1 % (12.0-15.0); WHITE BLOOD COUNT 11.1 x10^3/uL (4.8-10.8)
[2023-02-08 08:10] VITALS: BP 133/60; O2SAT 99
[2023-02-08] MEDS ORDERED: MINERAL OIL ENEMA 133 ML BOTTLE RC STA (08:12)
--- NOTE | 2023-02-08 08:12 | ED Physician Documentation ---
History of Present Illness - Stated complaint Stated Complaint: N/D/V - Chief complaint Chief Complaint: Abd Pain - History obtained from History obtained from: Patient - Additonal information Additional information: The patient comes to the emergency department chief complaint of "I have an impaction". She states that her last bowel movement was 2 days ago and that is normal and that she felt fine until about 3:00 this morning. She noted she had the urge to defecate but could not get anything out. She tried and tried and states that hurts so bad down in her rectal area that she feels like she can even try to push the feces out anymore. The patient denies any vomiting but states she is felt a bit nauseated when the pain escalates. She had a 7 years ago but otherwise no abdominal surgeries. She denies any other complaints at this time and states she is otherwise healthy. She has not tried any home remedies for her constipation. She does note that she was on pain meds last week for an unrelated problem, but states her last dose of those was a few days before her last bowel movement. She states she has never had this issue previously. PD PAST MEDICAL HISTORY - Past Medical History Cardiovascular: None Respiratory: None Neuro: None Endocrine/Autoimmune: None GI: None APPLIED RESEARCH DIRECTOR: None : None HEENT: None Psych: Anxiety, Panic attacks Musculoskeletal: None Derm: None - Past Surgical History Past Surgical History: Yes /APPLIED RESEARCH DIRECTOR: section, Other - Present Medications Home Medications: Ambulatory Orders Medication Instructions Recorded Confirmed ALPRAZolam [Alprazolam] 0.5 mg PO BID PRN 01/25/21 01/31/23 Doxycycline Hyclate 100 mg PO BID 7 Days #14 cap 01/31/23 HYDROcod/ACETAM 5/325 [[place] 5/325] 1 ea PO Q6H PRN #10 tablet 01/31/23 Naproxen 500 mg PO BID #15 tab 01/31/23 Docusate Sodium 250Mg Capsule 250 mg PO DAILY #30 cap 02/08/23 [Colace 250Mg Capsule] - Allergies Allergies/Adverse Reactions: Allergies Allergy/AdvReac Type Severity Reaction Status Date / Time No Known Drug Allergies Allergy Verified 02/08/23 07:25 - Social History Does the pt smoke?: No Smoking Status: Never smoker Does the pt drink ETOH?: Yes Does the pt have substance abuse?: No - Immunizations Immunizations are current?: Yes - POLST Patient has POLST: No PD ED PE NORMAL - Vitals Vital signs reviewed: Yes - General General: Alert and oriented X 3, No acute distress, Well developed/nourished - HEENT HEENT: Atraumatic, PERRL, EOMI, Moist mucous membranes - Neck Neck: Supple, no meningeal sign - Respiratory Respiratory: No respiratory distress - Abdomen Abdomen: Soft, Non distended, Other (Mild suprapubic tenderness, no rebound or guarding.) - Rectal Rectal: Other (Normal external anorectal exam. Digital exam reveals a large, claylike, firm, impacted mass of stool that is at about the fingertip. No blood. Stool is brown.) - Derm Derm: Normal color, Warm and dry, No rash - Extremities Extremities: No deformity - Neuro Neuro: Alert and oriented X 3 - Psych Psych: Normal mood, Normal affect Results - Vitals Vitals: Oxygen O2 Source Room air - Labs Labs: Laboratory Tests 02/08/23 02/08/23 07:55 07:55 WBC 11.1 H RBC 4.87 Hgb 14.7 Hct 43.0 MCV 88.3 MCH 30.2 MCHC 34.2 RDW 12.1 Plt Count 242 MPV 10.7 Neut # (Auto) 9.1 H Lymph # (Auto) 1.5 [place] # (Auto) 0.5 Eos # (Auto) 0.0 Baso # (Auto) 0.0 Absolute Nucleated RBC 0.00 Nucleated RBC % 0.0 Sodium 136 Potassium 4.3 Chloride 105 Carbon Dioxide 24 Anion Gap 7.0 BUN 13 Creatinine 0.6 Estimated GFR (MDRD) 115 Glucose 92 Calcium 10.2 Total Bilirubin 0.6 AST 14 ALT 11 Alkaline Phosphatase 64 Total Protein 7.4 Albumin 5.1 Globulin 2.3 Albumin/Globulin Ratio 2.2 Lipase 19 PD Medical Decision Making - ED course Complexity details: considered differential, d/w patient ED course: I did attempt to disimpact the patient in the emergency department, but because the massive stools at my fingertip, and because patient did not tolerate bearing down very well, I was not able to get much stool out. However, and was able to break up the massive stool with the tip of my finger, which we did follow-up with an enema for the patient. Following this, the pt had a large BM and was feeling better. We have discussed symptomatic management at home, as well as the usual indications for follow-up and return. Departure - Departure Disposition: 01 Home, Self Care Clinical Impression: Fecal impaction Condition: Stable Instructions: ED Impaction Fecal Treated Prescriptions: Docusate Sodium 250Mg Capsule [Colace 250Mg Capsule] 250 mg PO DAILY #30 cap Comments: A disimpaction and enema have been performed today and you have had output of stool. A prescription for stool softeners been electronically transmitted to the [facility] pharmacy in [place], your pharmacy of choice on record. Please pick this up and start it today. Please follow-up with your primary doctor if you continue to have problems with constipation. Forms: PCP List Discharge Date/Time: 02/08/23 09:03
[2023-02-08 08:17] LABS: ALBUMIN 5.1 g/dL (3.2-5.5); ALBUMIN/GLOBULIN RATIO 2.2 (1.0-2.2); BILIRUBIN,TOTAL 0.6 mg/dL (0.2-1.0); CALCIUM 10.2 mg/dL (8.5-10.3); CREATININE 0.6 mg/dL (0.6-1.3); POTASSIUM 4.3 mmol/L (3.5-4.5); TOTAL PROTEIN 7.4 g/dL (6.4-8.9)
== END 2023-02-08 09:03 | disposition home or self-care (01) ==
LOC: ED 07:12
DX: K56.41 Fecal impaction (principal)
CPT/HCPCS: 36415; 80053; 83690; 85025; 99283; A9270

== ENCOUNTER 2023-04-04 08:59 | Outpatient (CLI) | payer MEDICAID ==
[2023-04-04 09:27] LABS: CALCIUM 9.6 mg/dL (8.5-10.3); CREATININE 0.6 mg/dL (0.6-1.3)
== END 2023-04-04 09:00 | disposition home or self-care (01) ==
LOC: LAB 08:59
PROVIDERS: ATTEND Physician Assistant
DX: Z51.81 Encounter for therapeutic drug level monitoring (principal)
CPT/HCPCS: 36415; 80048

== ENCOUNTER 2023-07-29 23:01 | Emergency (ER) | payer MEDICAID ==
--- NOTE | 2023-07-29 23:43 | ED Physician Documentation ---
PD HPI UPPER EXT INJURY - Stated complaint Stated Complaint: LT HAND LAC - Chief complaint Chief Complaint: Laceration - History obtained from History obtained from: Patient - Additonal information Additional information: Patient is a 33-year-old female presenting for evaluation of laceration to left fourth finger.Injury occurred this evening. Patient is right-hand dominant. Patient was cutting gabriel with kitchen knife. She is not on a blood thinner. Her last tetanus was 3 years ago. She was unable to stop the bleeding with chest pressure. Review of Systems Constitutional: denies: Fever Skin: reports: Laceration (s) PD PAST MEDICAL HISTORY - Past Medical History Cardiovascular: None Respiratory: None Neuro: None Endocrine/Autoimmune: None GI: None CITY ALDERMAN: None : None HEENT: None Psych: Anxiety, Panic attacks Musculoskeletal: None Derm: None - Past Surgical History Past Surgical History: Yes /CITY ALDERMAN: section, Other - Present Medications Home Medications: Ambulatory Orders Medication Instructions Recorded Confirmed ALPRAZolam [Alprazolam] 0.5 mg PO BID PRN 01/25/21 01/31/23 Doxycycline Hyclate 100 mg PO BID 7 Days #14 cap 01/31/23 HYDROcod/ACETAM 5/325 [[place] 5/325] 1 ea PO Q6H PRN #10 tablet 01/31/23 Naproxen 500 mg PO BID #15 tab 01/31/23 Docusate Sodium 250Mg Capsule 250 mg PO DAILY #30 cap 02/08/23 [Colace 250Mg Capsule] - Allergies Allergies/Adverse Reactions: Allergies Allergy/AdvReac Type Severity Reaction Status Date / Time No Known Drug Allergies Allergy Verified 07/29/23 23:13 - Social History Does the pt smoke?: No Smoking Status: Never smoker Does the pt drink ETOH?: Yes Does the pt have substance abuse?: No - Immunizations Immunizations are current?: Yes - POLST Patient has POLST: No PD ED PE NORMAL - General General: Alert and oriented X 3, No acute distress, Well developed/nourished - HEENT HEENT: Atraumatic - Neck Neck: Supple, no meningeal sign - Cardiac Cardiac: Strong equal pulses - Respiratory Respiratory: No respiratory distress - Extremities Extremities: Other (1 cm laceration to the distal medial left fourth finger with involvement of the nailbed, normal range of motion at all digits, brisk cap refill.) - Neuro Neuro: Alert and oriented X 3, No motor deficit, No sensory deficit, Normal speech Results - Vitals Vitals: Vital Signs - 24 hr 07/29/23 07/30/23 23:10 01:26 Temperature 36.9 C Heart Rate 103 H 84 Respiratory 18 16 Rate Blood Pressure 120/77 118/72 O2 Saturation 97 100 Oxygen O2 Source Room air Procedures - Laceration (location) L ring finger Length in cm: 1 Wound type: Linear Neurovascular status: Sensory intact, Motor intact, Vascular intact Anesthesia: Lidocaine 1% Wound preparation: Hibiclens Skin layer closure: Nylon, Dermabond (Over nail), Size #-0 - enter number (4-0), Sutures - enter # (2) Other: Patient tolerated well, No complications, Neurovascular intact, Dressing applied, Tetanus UTD PD Medical Decision Making - ED course Complexity details: re-evaluated patient ED course: Patient is a 33-year-old female presenting for evaluation of laceration to left ring finger. Neurovascular intact. Small area of involvement of nailbed. Wound was cleaned and closed with 2 sutures and nail injury was fixed with Dermabond. Dressing applied. Tetanus is up-to-date. Patient counseled on wound care instructions, need to return for suture removal as well as concerning symptoms to return for. Departure - Departure Disposition: 01 Home, Self Care Clinical Impression: Laceration of left ring finger with damage to nail Condition: Stable Instructions: ED Laceration Hand, ED Laceration Ext Skin Glue Comments: You have 2 stitches that were placed to close the laceration to your left ring finger. Come back for any signs of infection which would include: Redness, swelling, drainage, increased pain, or fevers. You can wash it soap and water. Keep it covered and moist with bacitracin ointment which is available over the counter; avoid neosporin. Follow-up with your physician in about 10 days for suture removal. Forms: PCP List Discharge Date/Time: 07/30/23 01:28
[2023-07-29] MEDS: BUFFERED LIDOCAINE 10 ML SYRINGE SUBQ STA (23:50)
[2023-07-30 01:27] VITALS: BP 118/72; O2SAT 100
== END 2023-07-30 01:28 | disposition home or self-care (01) ==
LOC: ED 23:01
DX: S61.315A Laceration without foreign body of left ring finger with damage to nail, initial encounter (principal); W26.0XXA Contact with knife, initial encounter; Y93.G1 Activity, food preparation and clean up
CPT/HCPCS: 12001; 99282

== ENCOUNTER 2023-08-31 10:29 | Outpatient (CLI) | payer MEDICAID ==
[2023-08-31 10:42] LABS: BASOPHILS % (AUTO) 0.6 %; EOSINOPHILS # (AUTO) 0.1 10^3/uL (0.0-0.7); EOSINOPHILS % (AUTO) 2.2 %; HGB - HEMOGLOBIN 14.3 g/dL (12.0-16.0); LYMPHOCYTES # (AUTO) 2.1 10^3/uL (1.5-3.5); MEAN CORPUSCULAR HEMOGLOBIN 30.7 pg (27.0-31.0); MEAN CORPUSCULAR HGB CONC 33.3 g/dL (32.0-36.0); MEAN CORPUSCULAR VOLUME 92.3 fL (81.0-99.0); MEAN PLATELET VOLUME 10.2 fL (7.9-10.8); MONOCYTES # (AUTO) 0.4 10^3/uL (0.0-1.0); MONOCYTES % (AUTO) 6.8 %; NEUTROPHILS # (AUTO) 2.8 10^3/uL (1.5-6.6); NEUTROPHILS % (AUTO) 51.2 %; PLT - PLATELET COUNT 210 10^3/uL (130-450); RED BLOOD COUNT 4.66 10^6/uL (4.20-5.40); RED CELL DISTRIBUTION WIDTH 12.5 % (12.0-15.0); WHITE BLOOD COUNT 5.4 x10^3/uL (4.8-10.8)
[2023-08-31 10:58] LABS: ALBUMIN 4.7 g/dL (3.2-5.5); ALBUMIN/GLOBULIN RATIO 1.7 (1.0-2.2); ALKALINE PHOSPHATASE 66 IU/L (42-121); ALT ALANINE AMINOTRANSFERASE 9 IU/L (10-60); AST ASPARTATE AMINOTRANSFERASE 11 IU/L (10-42); BILIRUBIN,TOTAL 0.9 mg/dL (0.2-1.0); BUN - BLOOD UREA NITROGEN 13 mg/dL (6-20); CALCIUM 9.9 mg/dL (8.5-10.3); CARBON DIOXIDE - CO2 28 mmol/L (21-32); CHLORIDE 105 mmol/L (101-111); CHOL/HDL RATIO 2.8 (<4.4); CHOLESTEROL 176 mg/dL; CREATININE 0.5 mg/dL (0.6-1.3); GFR - MDRD 141 (>89); GLUCOSE 87 mg/dL (74-104); HDL CHOLESTEROL 62 mg/dL; LDL CHOLESTEROL,CALCULATED 94 mg/dL; LDL/HDL RATIO 1.5 (<4.4); SODIUM 137 mmol/L (135-145); TOTAL PROTEIN 7.4 g/dL (6.4-8.9); TRIGLYCERIDES 101 mg/dL (48-352); VLDL CHOLESTEROL 20 mg/dL
[2023-08-31 11:10] LABS: THYROID STIMULATING HORMONE 0.73 uIU/mL (0.34-5.60)
== END 2023-08-31 10:30 | disposition home or self-care (01) ==
LOC: LAB 10:29
PROVIDERS: ATTEND Physician Assistant
DX: Z51.81 Encounter for therapeutic drug level monitoring (principal); Z79.899 Other long term (current) drug therapy; Z13.220 Encounter for screening for lipoid disorders; R53.83 Other fatigue
CPT/HCPCS: 36415; 80050; 80061; 83721